=== PATIENT | male | born 1955 | race Caucasian/White ===

== ENCOUNTER 2017-07-12 05:52 | Outpatient (CLI) | payer OTHER ==
[2017-07-12] VITALS (9 sets, daily range): BP systolic 105–133; BP diastolic 66–85
[~2017-07-12] VITALS: Ht 172.7 cm; Wt 95.3 kg
[2017-07-12] MEDS ORDERED: NITR0.4T SL (06:48)
[2017-07-12] MEDS ORDERED: NAPR500T4 PO (06:48)
[2017-07-12] MEDS ORDERED: MONT10TA6 PO (06:48)
[2017-07-12] MEDS ORDERED: ASPI-630 PO (06:48)
[2017-07-12] MEDS ORDERED: ATOR20TA PO (06:48)
[2017-07-12] MEDS ORDERED: ISOS60TA2 PO (06:48)
[2017-07-12] MEDS ORDERED: PROVENTIL HFA6.7 GM IH (06:48)
[2017-07-12] MEDS ORDERED: LEVO100T PO (06:48)
[2017-07-12] MEDS ORDERED: CICL6.1H3 IH (06:48)
[2017-07-12 07:06] LABS: HEMATOCRIT 37.1 % (39.0-53.0); HEMOGLOBIN 12.6 g/dL (13.0-17.5); RED BLOOD COUNT 4.06 x10^6/uL (4.30-5.70); RED CELL DISTRIBUTION WIDTH 13.5 % (11.5-14.5); WHITE BLOOD COUNT 6.7 x10^3/uL (4.0-11.0)
[2017-07-12] MEDS ORDERED: LIDOCAINE 2% 20 ML VIAL. ONE (07:08)
[2017-07-12] MEDS ORDERED: IODIXANOL 320 MG/ML 100 ML VIAL. ONE (07:08)
[2017-07-12 07:15] LABS: INR 1.2 (0.8-1.1); PROTHROMBIN TIME PATIENT 14.1 SEC (11.7-14.0)
[2017-07-12 07:20] LABS: CALCIUM 8.9 mg/dL (8.5-10.1); CREATININE 0.9 mg/dL (0.7-1.3); GFR 86.4; POTASSIUM 3.7 mmol/L (3.5-5.1)
[2017-07-12] MEDS ORDERED: MIDAZOLAM HCL/PF 5 MG/5 ML VIAL. ONE (07:44)
[2017-07-12] MEDS ORDERED: fentaNYL PF VIAL 100 MCG/2 ML VIAL ONE (07:44)
[2017-07-12] MEDS ORDERED: HEPARIN for IV BOLUS 10,000 UNIT/10 ML VIAL. ONE (07:44)
[2017-07-12] MEDS ORDERED: VERAPAMIL 5 MG/2 ML VIAL. ONE (07:44)
[2017-07-12] MEDS ORDERED: NITROGLYCERIN 200 MCG/2 ML SYRINGE FOR CATH/VASC LAB. ONE (07:46)
[2017-07-12] MEDS ORDERED: IODIXANOL 320 MG/ML 100 ML VIAL. IART ONE (08:15)
[2017-07-12] MEDS ORDERED: HEPARIN for IV BOLUS 10,000 UNIT/10 ML VIAL. IART ONE (08:15)
[2017-07-12] MEDS ORDERED: fentaNYL PF VIAL 100 MCG/2 ML VIAL IV ONE (08:15)
[2017-07-12] MEDS ORDERED: VERAPAMIL 5 MG/2 ML VIAL. IART ONE (08:15)
[2017-07-12] MEDS ORDERED: NITROGLYCERIN 200 MCG/2 ML SYRINGE FOR CATH/VASC LAB. IART ONE (08:15)
[2017-07-12] MEDS ORDERED: LIDOCAINE 2% 20 ML VIAL. IJ ONE (08:15)
[2017-07-12] MEDS ORDERED: MIDAZOLAM HCL/PF 5 MG/5 ML VIAL. IV ONE (08:15)
--- NOTE | 2017-07-12 08:21 | PDOC ---
MODERATE SEDATION ASSESSMENT RISKS/ALTERNATIVES Risks/Alternatives Risks and alternatives of this type of sedation and procedure discussed with: RISK/ALTERNATIVES: Patient H & P ON CHART H & P H & P on chart and reviewed for co-morbid conditions and appropriate labs. H&P ON CHART: Yes STATUS PREG STATUS ASSESSED: N/A MEDS/ALLERGIES REVIEWED Meds/Allergies Reviewed Medications and Allergies including time and route of recently administered narcotics and sedatives. MEDS/ALLERGIES REVIEWED: Yes ASA RATING ASA RATING: II AIRWAY ASSESSMENT Airway Assessment Airway patency, oral function limitations, presence of caps, crowns, dentures, partials, and ability to extend neck assessed. AIRWAY ASSESSMENT: Yes MALLAMPATI SCORE MALLAMPATI SCORE: II PRE-SEDATION ASSESSMENT PRE-SEDATION ASSESSMENT: Yes MARIA TERESA BOOTH MD Jul 12, 2017 08:21
[2017-07-12] MEDS ORDERED: NITROGLYCERIN SUBLINGUAL 0.4 MG BOTTLE OF 25. SL PRN (08:30)
[2017-07-12] MEDS ORDERED: IV 1/2 NORMAL SALINE 1,000 ML IV SCH (09:00)
--- NOTE | 2017-07-12 09:21 | CARD ---
APPROVED REPORT Procedure(s) performed: Left heart catheterization, selective coronary angiography and left ventricul ography via right transradial approach Moderate sedation: 25 min INDICATION The indication(s) include : unstable angina . PROCEDURE NARRATIVE After explaining the risks, benefits and alternative options, informed consent was obtained from seth ent. Patient was brought to the cardiac Outside Rigger and right wrist was prepped and draped in the usual fashion after confirming a positive modified David's test. Arterial access was obtained in the [facility] t radial artery and a 6 Albanian sheath was inserted. 6 Albanian Danny catheter was used to perform rocky ective angiography of the left and right coronary arteries. 6 Albanian pigtail catheter was used to pe rform left ventriculography. Patient tolerated the procedure well. Hemostasis was achieved using TR band. There were no immediate complications. The following findings were noted. FINDINGS 1. Hemodynamics: Left ventricular end-diastolic pressure of 17 mmHg. No pullback gradient across th e aortic valve. 2. Left ventriculography: Normal left ventricle systolic function with ejection fraction estimated at 60%. No significant mitral regurgitation seen. 3. Coronary angiography: a. The left main coronary artery arose from the left sinus of Valsalva, gave rise to the left anteri or descending and left circumflex arteries and did not show any significant stenosis. b. The left anterior descending artery did not show any significant stenosis. c. The left circumflex artery did not show any significant stenosis. d. The right coronary artery was a large and dominant vessel arising from the right sinus of Valsalv a that did not show any significant stenosis. Conclusion 1. No significant coronary artery disease 2. Normal left ventricular systolic function with ejection fraction estimated at 60%. Recommendations Cardiac Risk Reduction Program
== END 2017-07-12 10:40 ==
LOC: CCL 05:52 → EEVIPCON 09:00 → CCL 10:40
PROVIDERS: ATTEND Internal Medicine Cardiovascular Disease
DX: I20.0 Unstable angina (principal); I10 Essential (primary) hypertension; J44.9 Chronic obstructive pulmonary disease, unspecified; M19.91 Primary osteoarthritis, unspecified site; E03.9 Hypothyroidism, unspecified; F17.200 Nicotine dependence, unspecified, uncomplicated; Z88.1 Allergy status to other antibiotic agents; Z86.69 Personal history of other diseases of the nervous system and sense organs; Z88.0 Allergy status to penicillin; Z88.8 Allergy status to other drugs, medicaments and biological substances
CPT/HCPCS: 36415; 80048; 85027; 85610; 93458; 99152; 99153; C1769; C1892; J1644; J2250; J3010; J3490; J2001